=== PATIENT | female | born 1965 | race Caucasian/White ===

== ENCOUNTER 2020-10-21 14:14 | Emergency (ER) | payer BC ==
[2020-10-21] MEDS ORDERED: PRINIVIL20 M1 (14:22)
[2020-10-21] MEDS ORDERED: BLACK COHOSH40 MG (14:22)
[2020-10-21] MEDS ORDERED: ZYRTEC ALLERGY10 MG PO (14:22)
[2020-10-21] MEDS ORDERED: OPTIMUM VITAMIN1 TAB PO (14:22)
[2020-10-21] MEDS ORDERED: SIMVASTATIN5 M1 (14:22)
[2020-10-21 14:40] LABS: EOS # 0.2 (0.04-0.40); EOS % 2.2 % (1.0-5.0); HEMATOCRIT 39.5 % (37.0-47.0); HEMOGLOBIN 13.6 g/dL (12.5-16.0); LYMPH# 1.5 (1.50-4.00); MEAN CELL VOLUME 88 fl (78-100); MEAN CORPUSCULAR HEMOGLOBIN 30 pg (27-31); MEAN CORPUSCULAR HGB CONC 34 g/dL (33-37); MEAN PLATELET VOLUME 9.1 fl (7.4-10.4); MONO # 0.6 (0.20-0.80); NEU # 4.5 (1.40-6.50); PLATELET COUNT 272 K/mm3 (130-400); RED BLOOD COUNT 4.47 M/mm3 (4.10-5.30); RED CELL DISTRIBUTION WIDTH 12.2 % (11.5-14.5); WHITE BLOOD COUNT 6.8 K/mm3 (4.8-10.8)
[2020-10-21 14:49] LABS: ALBUMIN 4.5 g/dL (3.5-5.0); POTASSIUM 3.3 mmol/L (3.5-5.1)
[2020-10-21 14:50] LABS: CALCIUM 9.5 mg/dL (8.3-10.5)
[2020-10-21 14:52] LABS: TOTAL PROTEIN 6.9 g/dL (6.4-8.3)
[2020-10-21 14:53] LABS: TOTAL BILIRUBIN 0.6 mg/dL (0.2-1.2)
[2020-10-21 16:34] LABS: D-DIMER 0.25 mg/L FEU (0.15-0.50)
[2020-10-21] MEDS ORDERED: NORCO 325 MG-51 TA1 PO (19:10)
[2020-10-21] MEDS ORDERED: KETOROLAC10 MG PO (19:10)
[2020-10-21 19:56] VITALS: BP 136/95
== END 2020-10-21 19:57 | disposition home or self-care (01) ==
LOC: ED 14:14
PROVIDERS: Family Medicine
DX: R07.89 Other chest pain (principal); F41.9 Anxiety disorder, unspecified; I10 Essential (primary) hypertension; E78.5 Hyperlipidemia, unspecified
CPT/HCPCS: J0595; J1885; J2270; Q9967

== ENCOUNTER 2022-06-23 09:51 | Emergency (ER) | payer BC ==
[~2022-06-23 09:51] MED LIST: BLACK COHOSH40 MG; KETOROLAC10 MG PO; NORCO 325 MG-51 TA1 PO; OPTIMUM VITAMIN1 TAB PO; PRINIVIL20 M1; SIMVASTATIN5 M1; ZYRTEC ALLERGY10 MG PO
[2022-06-23 10:07] VITALS: BP 144/99
[2022-06-23] MEDS ORDERED: BACLOFEN10 M1 PO (10:09)
[2022-06-23] MEDS ORDERED: SUMATRIPTAN SUC50 M1 PO (10:09)
[2022-06-23] MEDS ORDERED: TRIAMCINOLONE AC0.13 TP (10:09)
[2022-06-23] MEDS ORDERED: SIMVASTATIN40 M1 PO (10:09)
[2022-06-23] MEDS ORDERED: HYDROCHLOROTHIA1 T14 PO (10:09)
[2022-06-23] MEDS ORDERED: METRONIDAZOLE500 M1 PO (10:09)
[2022-06-23] MEDS ORDERED: DULOXETINE30 MG PO (10:09)
[2022-06-23] MEDS ORDERED: VOLTAREN 75 DR75 MG PO (10:10)
[2022-06-23] MEDS ORDERED: COLCHICINE0.6 M1 PO (11:24)
== END 2022-06-23 11:39 | disposition home or self-care (01) ==
LOC: ED 09:51
DX: M10.9 Gout, unspecified (principal)

== ENCOUNTER 2024-07-04 03:28 | Emergency (ER) | payer BC ==
[~2024-07-04] VITALS: Ht 152.4 cm; Wt 68.2 kg
[~2024-07-04 03:28] MED LIST changes: +BACLOFEN10 M1 PO; +COLCHICINE0.6 M1 PO; +DULOXETINE30 MG PO; +HYDROCHLOROTHIA1 T14 PO; +METRONIDAZOLE500 M1 PO; +SIMVASTATIN40 M1 PO; +SUMATRIPTAN SUC50 M1 PO; +TRIAMCINOLONE AC0.13 TP; +VOLTAREN 75 DR75 MG PO
[2024-07-04] MEDS ORDERED: UBRELVY50 MG PO (03:41)
[2024-07-04] MEDS ORDERED: PRAMIPEXOLE0.125 MG PO (03:41)
[2024-07-04] MEDS ORDERED: AMITRIPTYLINE H50 M1 (03:41)
[2024-07-04] MEDS ORDERED: Ketorolac 30 MG/ML VIAL IV ONE (04:15)
[2024-07-04] MEDS ORDERED: Ondansetron 4 MG/2 ML VIAL IV ONE (04:15)
[2024-07-04] MEDS ORDERED: diphenhydrAMINE 50 MG/ML 1 ML VIAL IV ONE (04:15)
[2024-07-04] MEDS ORDERED: NS 1,000 ML IV SCH (05:00)
[2024-07-04] MEDS ORDERED: NS 500 ML IV SCH (05:00)
[2024-07-04 06:00] VITALS: BP 141/103
== END 2024-07-04 06:09 | disposition home or self-care (01) ==
LOC: ED 03:28
DX: G43.909 Migraine, unspecified, not intractable, without status migrainosus (principal)
CPT/HCPCS: J1200; J1885; J2405; J7030

== ENCOUNTER 2024-10-13 19:03 | Emergency (ER) | payer BC ==
[~2024-10-13] VITALS: Ht 152.4 cm; Wt 66.8 kg
[~2024-10-13 19:03] MED LIST changes: +AMITRIPTYLINE H50 M1; +PRAMIPEXOLE0.125 MG PO; +UBRELVY50 MG PO
[2024-10-13] MEDS ORDERED: ROSUVASTATIN CA20 MG PO (19:13)
[2024-10-13] MEDS ORDERED: WELLBUTRIN XL300 M1 PO (19:13)
[2024-10-13] MEDS ORDERED: WELLBUTRIN 75MG75 MG PO (19:13)
[2024-10-13] MEDS ORDERED: NORVASC 10MG10 MG PO (19:13)
[2024-10-13] MEDS ORDERED: ONDANSETRON HYDR4 MG PO (19:14)
[2024-10-13] MEDS ORDERED: WEGOVY0.25 MG/0. SQ (19:14)
[2024-10-13] MEDS ORDERED: FAMOTIDINE40 M1 PO (19:14)
[2024-10-13] MEDS ORDERED: fentaNYL 100 MCG/2 ML VIAL IV ONE ×2 (19:45→20:15)
[2024-10-13] MEDS ORDERED: NS 1,000 ML IV SCH (19:45)
[2024-10-13] MEDS ORDERED: Ondansetron 4 MG/2 ML VIAL IV ONE (19:45)
[2024-10-13 20:01] LABS: BASO # 0.01 K/mm3 (0.02-0.10); EOS # 0.09 K/mm3 (0.04-0.40); EOS % 0.9 % (1.0-5.0); HEMATOCRIT 41.6 % (37.0-47.0); HEMOGLOBIN 14.6 g/dL (12.5-16.0); LYMPH# 0.91 K/mm3 (1.50-4.00); MEAN CELL VOLUME 89 fl (78-100); MEAN CORPUSCULAR HEMOGLOBIN 31 pg (27-31); MEAN CORPUSCULAR HGB CONC 35 g/dL (33-37); MEAN PLATELET VOLUME 8.9 fl (7.4-10.4); MONO # 0.37 K/mm3 (0.20-0.80); NEU # 8.88 K/mm3 (1.40-6.50); PLATELET COUNT 250 K/mm3 (130-400); RED CELL DISTRIBUTION WIDTH 11.9 % (11.5-14.5); WHITE BLOOD COUNT 10.3 K/mm3 (4.8-10.8)
[2024-10-13 20:08] LABS: ALBUMIN 4.6 g/dL (3.5-5.0)
[2024-10-13 20:09] LABS: CALCIUM 9.7 mg/dL (8.3-10.5)
[2024-10-13 20:12] LABS: TOTAL BILIRUBIN 1.6 mg/dL (0.2-1.2)
[2024-10-13] MEDS ORDERED: NS 100 ML IV SCH (20:49)
[2024-10-13] MEDS ORDERED: Iohexol 300 - 100 ML VIAL IV ONE (20:50)
[2024-10-13 21:00] LABS: URINE APPEARANCE CLOUDY (CLEAR); URINE BILIRUBIN 2+ (NEGATIVE); URINE BLOOD NEGATIVE (NEGATIVE); URINE COLOR BROWN (YELLOW); URINE GLUCOSE NEGATIVE (NEGATIVE); URINE KETONE 2+ (NEGATIVE); URINE LEUKOCYTE ESTERASE NEGATIVE (NEGATIVE); URINE NITRATE NEGATIVE (NEGATIVE); URINE PROTEIN(semi-quant) TRACE (NEGATIVE)
[2024-10-13] MEDS ORDERED: Polyethylene Glycol 3350 Powder 17 GM PACKET PO ONE (21:45)
[2024-10-13] MEDS ORDERED: DULCOLAX S10 MG/SUPP RC (22:32)
[2024-10-13] MEDS ORDERED: MIRALAX17 GM PO (22:33)
[2024-10-13 23:30] VITALS: BP 116/74
== END 2024-10-13 23:33 | disposition home or self-care (01) ==
LOC: ED 19:03
PROVIDERS: Nurse Practitioner
DX: K59.00 Constipation, unspecified (principal); E80.7 Disorder of bilirubin metabolism, unspecified; K52.89 Other specified noninfective gastroenteritis and colitis; F17.200 Nicotine dependence, unspecified, uncomplicated; Z90.49 Acquired absence of other specified parts of digestive tract
CPT/HCPCS: J2405; J2765; J3010; J7030; J7120; Q9967